=== PATIENT | male | born 1985 | race Caucasian/White ===

== ENCOUNTER → 2020-09-18 | Outpatient (REF) ==
[~2020-09-18] MED LIST: CELEXA10 MG PO
[2020-09-18 14:37] LABS: CLOSTRIDIUM DIFF A/B POS; CLOSTRIDIUM DIFF A/B INTERP Toxigenic C.diff POS
== END ==
LOC: ZLAB.WCH 12:33
PROVIDERS: Family Medicine
DX: Z01.89 Encounter for other specified special examinations (principal)